=== PATIENT | male | born 1960 | race Caucasian/White ===

== ENCOUNTER → 2017-09-14 15:09 | Outpatient (POV) | payer OTHER, SELFPAY | PROVIDERS: Visit Provider Dermatology | DX: Z00.00 Encounter for general adult medical examination without abnormal findings (principal) ==

== ENCOUNTER → 2017-12-12 15:34 | Outpatient (POV) | payer OTHER, SELFPAY ==
[2017-12-12 15:54] VITALS: BP 114/83; PULSE 78; RESP 18; O2SAT 95
--- NOTE | 2017-12-12 16:27 | HMH.PMCON ---
Assessment and Plan (1) Sacroiliitis Current visit: Yes Status: Chronic Category: Medical Code(s): M46.1 - Sacroiliitis, not elsewhere classified - Assessment and plan all Dx Assessment and Plan for all problems:: We will schedule left SI joint injection for the patient. This note was dictated using voice recognition software and may contain errors or omissions HPI - Data of Consult Consult date: 12/12/17 Requesting Physician: Tamiko Herrera APRN Primary Care Provider: Reggie Dorantes Provider: Referral Provider, MD - Consult Narrative Reason for consult: SI joint pain History of present illness: Mr. Abad is a 57 year old male who presents today with a benign medical history however he does have left SI joint pain that he has on and off after mowing hay. Patient states that this flareup has been worse than it been in the past. Patient states that he usually goes away however he still having very pinpoint SI joint pain. Patient's tried and failed anti-inflammatories along with home stretching utilizes. Patient and I also discussed utilizing an SI joint belt while he is on the tractor. He rates his pain a 6 out of 10 today CC: Tamiko Herrera APRN [facility] History I have reviewed the patient's past medical history: Yes Medical History: Denies:: Diabetes Mellitus Type 1, Diabetes Mellitus Type 2, MRSA Other Surgeries: Yes: No Previous Surgery Amputation: No Fractures: No - *Social History Educational Level: Completed High School Alcohol Intake: never Occupational Status: employed Household Members: spouse - Psychiatric History Expresses thoughts of harming self/others: None Suicide Plan Description: No Plan Review of Systems - Review of Systems ROS General: no recent weight change, no fever, no sleep disturbances Respiratory: no cough, no shortness of air, no recurring pulmonary infections Cardiovascular/Peripheral Vascular: No chest pain, No palpitations, no edema, no shortness of breath. Gastrointestinal: no incontinence, normal bowel movements reported Genitourinary: no incontinence Musculoskeletal: SI joint pain left side Psychiatric: normal mood/ affect Neurological: [denies weakness in extremities], [denies balance issues] Meds Home Medications Medication Instructions Recorded Confirmed Type Allopurinol [Allopurinol 100mg 200 mg PO DAILY 12/12/17 12/12/17 History tablet] Allergies Allergy/AdvReac Type Severity Reaction Status Date / Time No Known Allergies Allergy Verified 12/12/17 15:57 Objective Vital signs: Pulse Resp BP Pulse Ox 78 18 114/83 95 12/12/17 15:54 12/12/17 15:54 12/12/17 15:54 12/12/17 15:54 Narrative: Physical Exam General: Alert and oriented x3, no acute distress, pleasant and cooperative, [on room air] Lungs: Resps E/U, Symmetrical chest expansion, Eyes: PERRL Musculoskeletal: Flexion and extension of lumbar spine somewhat guarded secondary to pain, deep tendon reflexes normal, strength in upper and lower extremities [5/5], slightly antalgic gait noted, positive Rossi's test on the left side Neurological: speech clear, 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
--- NOTE | 2017-12-12 16:30 | P.CONS_ITS ---
Assessment and Plan (1) Sacroiliitis Current visit: Yes Status: Chronic Category: Medical Code(s): M46.1 - Sacroiliitis, not elsewhere classified - Assessment and plan all Dx Assessment and Plan for all problems:: We will schedule left SI joint injection for the patient. This note was dictated using voice recognition software and may contain errors or omissions HPI - Data of Consult Consult date: 12/12/17 Requesting Physician: Tamiko Herrera APRN Primary Care Provider: Reggie Dorantes Provider: Referral Provider, MD - Consult Narrative Reason for consult: SI joint pain History of present illness: Mr. Abad is a 57 year old male who presents today with a benign medical history however he does have left SI joint pain that he has on and off after mowing hay. Patient states that this flareup has been worse than it been in the past. Patient states that he usually goes away however he still having very pinpoint SI joint pain. Patient's tried and failed anti-inflammatories along with home stretching utilizes. Patient and I also discussed utilizing an SI joint belt while he is on the tractor. He rates his pain a 6 out of 10 today CC: Tamiko Herrera APRN [facility] History I have reviewed the patient's past medical history: Yes Medical History: Denies:: Diabetes Mellitus Type 1, Diabetes Mellitus Type 2, MRSA Other Surgeries: Yes: No Previous Surgery Amputation: No Fractures: No - *Social History Educational Level: Completed High School Alcohol Intake: never Occupational Status: employed Household Members: spouse - Psychiatric History Expresses thoughts of harming self/others: None Suicide Plan Description: No Plan Review of Systems - Review of Systems ROS General: no recent weight change, no fever, no sleep disturbances Respiratory: no cough, no shortness of air, no recurring pulmonary infections Cardiovascular/Peripheral Vascular: No chest pain, No palpitations, no edema, no shortness of breath. Gastrointestinal: no incontinence, normal bowel movements reported Genitourinary: no incontinence Musculoskeletal: SI joint pain left side Psychiatric: normal mood/ affect Neurological: [denies weakness in extremities], [denies balance issues] Meds Home Medications Medication Instructions Recorded Confirmed Type Allopurinol [Allopurinol 100mg 200 mg PO DAILY 12/12/17 12/12/17 History tablet] Allergies Allergy/AdvReac Type Severity Reaction Status Date / Time No Known Allergies Allergy Verified 12/12/17 15:57 Objective Vital signs: Pulse Resp BP Pulse Ox 78 18 114/83 95 12/12/17 15:54 12/12/17 15:54 12/12/17 15:54 12/12/17 15:54 Narrative: Physical Exam General: Alert and oriented x3, no acute distress, pleasant and cooperative, [on room air] Lungs: Resps E/U, Symmetrical chest expansion, Eyes: PERRL Musculoskeletal: Flexion and extension of lumbar spine somewhat guarded seco ndary to pain, deep tendon reflexes normal, strength in upper and lower extremities [5/5], slightly antalgic gait noted, positive Rossi's test on the left side Neurological: speech clear, 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
== END ==
PROVIDERS: PCP Internal Medicine; Visit Provider Clinical Nurse Specialist Family Health
DX: M46.1 Sacroiliitis, not elsewhere classified (principal)
CPT/HCPCS: 99202

== ENCOUNTER → 2018-01-08 14:04 | Outpatient (POV) | payer OTHER, SELFPAY ==
--- NOTE | 2018-01-08 14:38 | P.CONS_ITS ---
[facility] Pain Management SOAP Note Subjective:: Patient is a pleasant 57-year-old white male who presents today for follow-up after left SI joint injection. He rates his pain a 0 out of 10. Patient is doing extremely well and would like to follow-up on an as-needed basis. ROS General: no recent weight change, no fever, no sleep disturbances Respiratory: no cough, no shortness of air, no recurring pulmonary infections Cardiovascular/Peripheral Vascular: No chest pain, No palpitations, no edema, no shortness of breath. 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 Patient's been instructed to call the office if he has any issues prior to his next appointment. This note was dictated using voice recognition software and may contain errors or omissions
[2018-01-08 15:04] VITALS: BP 133/86; PULSE 90; RESP 18; O2SAT 97; BMI 23.1
== END ==
PROVIDERS: PCP Internal Medicine; Visit Provider Clinical Nurse Specialist Family Health
DX: M46.1 Sacroiliitis, not elsewhere classified (principal)
CPT/HCPCS: 99213

== ENCOUNTER → 2020-07-07 15:52 | Outpatient (POV) | payer OTHER, SELFPAY | PROVIDERS: Visit Provider Dermatology | DX: Z00.00 Encounter for general adult medical examination without abnormal findings (principal) ==